=== PATIENT | male | born 1970 | race Caucasian/White ===

== ENCOUNTER → 2022-03-29 10:10 | Outpatient (BNVA) | payer BC, MEDICAID, SELFPAY | PROVIDERS: PCP Family Medicine; Referring Provider Family Medicine; Visit Provider Specialist | DX: G56.03 Carpal tunnel syndrome, bilateral upper limbs (principal); G56.23 Lesion of ulnar nerve, bilateral upper limbs | CPT/HCPCS: 95910; 95913 ==

== ENCOUNTER → 2022-05-14 08:15 | Outpatient (BNVA) | payer BC, MEDICAID, SELFPAY | PROVIDERS: PCP Family Medicine; Visit Provider Specialist | DX: G56.03 Carpal tunnel syndrome, bilateral upper limbs (principal); G56.23 Lesion of ulnar nerve, bilateral upper limbs; E66.01 Morbid (severe) obesity due to excess calories; Z68.42 Body mass index [BMI] 45.0-49.9, adult | CPT/HCPCS: 73110 ==

== ENCOUNTER 2022-05-14 11:46 | Outpatient (CLI) | payer BC, MEDICAID, SELFPAY | END 2022-05-14 11:47 | disposition home or self-care (01) | LOC: SPT 11:47 | PROVIDERS: PCP Family Medicine; Visit Provider Specialist | DX: Z46.89 Encounter for fitting and adjustment of other specified devices (principal); G56.03 Carpal tunnel syndrome, bilateral upper limbs | CPT/HCPCS: 97760; L3908 ==

== ENCOUNTER 2022-07-06 07:39 | Day surgery (SDC) | payer BC, MEDICAID, SELFPAY ==
[2022-07-05 11:50] VITALS: BMI 45.9
[2022-07-06 08:09] VITALS: BP 129/82; PULSE 88; RESP 18; TEMP 36.6; O2SAT 96
[2022-07-06 08:26] LABS: Glucose Point of Care 118 mg/dL (70-110)
[2022-07-06] MEDS: acetaminophen 1,000 MG/100 ML PIGGYBACK 400 MG IV (08:33)
--- NOTE | 2022-07-06 08:33 | ANES.PREANE2 ---
Pre-Anesthetic Assessment Height/Weight: Height 1.78 m Weight 145.15 kg Temp Pulse Resp BP Pulse Ox O2 Del Method 97.9 F 88 18 129/82 96 07/06/22 08:09 07/06/22 08:09 07/06/22 08:09 07/06/22 08:09 07/06/22 08:09 07/06/22 08:15 Preop Diagnosis: Left carpal tunnel syndrome Operation Date: 07/06/22 09:10 Proposed Procedures p LEFT CARPAL TUNNEL RELEASE 96305,G56.00(Left) - Janeen Oconnell MD Familial anesthetic complications: None Was Beta Neel taken within 24 hours: N/A Was Clonidine taken within 24 hours: N/A Last intake: Intake Last Liquid Date 07/05/22 Last Liquid Time 22:00 Last Solid Date 07/05/22 Last Solid Time 21:00 Social No alcohol and No tobacco Exam alert, oriented x 3, clear to auscultation bilaterally and regular rate & rhythm Airway Mallampati: Class III Dentition: chipped (missing, poor dentition) Pulmonary Sleep Apnea CV/HEM Hypertension Metabolic Diabetes Mellitus and Morbid Obesity Anesthetic Plan ASA status: 3 Anesthesia: Regional (specify below) Risk of > 500 ml blood loss (7ml/kg in children): No Medications/Allergies Home Medications Medication Instructions Recorded Confirmed Last Taken Type bupropion HCl 300 mg 24 hr tablet, 300 mg PO QAM 03/29/22 07/05/22 07/05/22 History extended release (Wellbutrin XL) lisinopril 20 1 tab PO BID 03/29/22 07/05/22 07/05/22 History mg-hydrochlorothiazide 12.5 mg tablet metformin 500 mg tablet 500 mg PO DAILY 03/29/22 07/05/22 07/05/22 History trazodone 50 mg tablet 50 mg PO DAILY 03/29/22 07/05/22 07/05/22 History Bilateral Cock Up Splint #1 ea 05/14/22 07/02/22 Unknown Rx celecoxib 200 mg capsule (Celebrex) 200 mg PO DAILY #30 caps 07/02/22 07/05/22 Unknown Rx ibuprofen 800 mg tablet (IBU) 800 mg PO TID 30 days #90 tabs 07/02/22 07/05/22 Unknown Rx Allergies Allergy/AdvReac Type Severity Reaction Status Date / Time No Known Allergies Allergy Verified 07/05/22 11:47 [facility] [place] Anesthesia Social History Smoking and tobacco status: never smoked Alcohol intake: never service: Yes branch: [employer] Current occupation: unemployed History of recent travel: No Data Anesthesia Cardiac Studies: No Data to Display
[2022-07-06] MEDS: CELEcoxib 200 mg Capsule 400 MG PO (08:34)
[2022-07-06] MEDS: sodium chloride 0.9% 1,000 ML 30 ML IV (08:37)
--- NOTE | 2022-07-06 09:15 | P.HPUD_ITS ---
Surgery/Procedure H&P Update DATE OF PROCEDURE: July 06, 2022 DATE H&P PERFORMED: 07/02/22 H&P UPDATE INFORMATION: I have reviewed H&P completed within last 30 days, I have examined patient prior to procedure, No changes to prior documentation and H&P is in [facility] EMR on date indicated PREOP DIAGNOSIS: Left carpal tunnel syndrome PLANNED PROCEDURE: Operation Date: 07/06/22 09:10 Proposed Procedures p LEFT CARPAL TUNNEL RELEASE [id number],G56.00(Left) - Janeen Oconnell MD Related Problem List Diagnoses (1) Carpal tunnel syndrome on right:
[2022-07-06] MEDS: ceFAZolin 2,000 MG in sodium chloride 0.9% (plus) 50 ML 100 MG IV (09:44)
--- NOTE | 2022-07-06 10:39 | P.OP_ITS ---
Operative Report Date of procedure: July 06, 2022 Pre-op diagnosis: Left carpal tunnel syndrome Post-op diagnosis: Left carpal tunnel syndrome Post-op findings: Severe compression across the carpal canal with very thickened transverse carpal ligament.? The nerve was an hourglass shape with purplish discoloration. Procedure done: Left carpal tunnel release Pathology: none sent Surgeon: Janeen Oconnell Senior Cost Accountant: None Anesthesia: MAC (Teodoro block, ASA 3) Estimated blood loss (mL): 5 Tourniquet time (min): 35 (At 250 mmHg) IV fluids (mL): 800 Urine output (mL): 0 (No Dominguez) Complications: None Condition: stable Disposition: PACU (Then return to same-day surgery for discharge home) Brief History: This is a 51 year old male patient here today for left carpal tunnel release. Patient states he has been experiencing symptoms for about 4 years, and he notes his symptoms are gradually worsening. He reports pain, numbness, tingling, and burning sensations in his bilateral hands, primarily involving the thumb index and long fingers.? He states his left hand is worse. He reports shooting pain that travels from his hands to his elbows.? He describes the pain as a constant pain and notes that it is significantly worsened when holding objects or driving.? This pain causes him difficulties in his activities of daily living. He states he has tried splinting and at home exercises with no relief. 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 The patient had nerve conduction studies consistent with moderate median nerve entrapment at the wrist. The patient reports he is diabetic. He states his last A1C was 6. While in the office questions were answered and consents were signed. Procedure: The patient was brought to the operating theater. The patient had a Teodoro block with MAC, ASA 3. The tourniquet was elevated to 250 mmHg for a total tourniquet time of 35 minutes. The patient was also given Ancef 2 g preoperatively. The arm was then prepped and draped with DuraPrep in usual fashion with the arm draped free. A surgical pause was performed. At the time, the surgical pause, we confirmed the site and side of surgery. We also confirmed the patient's identity, appropriate and timely administration of preoperative antibiotics and preoperative surgical markings. An incision was then made along the thenar crease. The incision crossed the wrist joint in a curvilinear fashion. Dissection continued through skin and soft tissues using a scalpel. The palmaris longus was identified along with the transverse carpal ligament. Each of these was released carefully to avoid injury to the median nerve.? His skin was quite thick, and subcutaneous tissues were as well.? The transverse carpal ligament was significantly thickened.? We were able to dissect gently into the carpal canal which was noted to be quite tight with significant compression across the median nerve. The nerve was visualized and was an hourglass shape with purplish discoloration. The canal was subsequently palpated to assure there was no bony encroachment upon the canal. There was a quite thickened fibrous tissue within the canal, and this was opened longitudinally as well. The canal was then palpated distally and proximally to assure that my small finger was passed easily without impingement. Finding this to be so, attention was directed to closure. The wound was irrigated with ropivacaine plain. It was then closed with 2-0 nylon in an interrupted mattress fashion. Sterile dressing was then placed consisting of Dermabond, OpSite, fluffed fluffs, sterile soft roll, and an Omkar wrap. The tourniquet was released after 35 minutes. There were no complications. There were no specimens. The procedure was well tolerated. Plan is the patient will be discharged home. Related Problem List Diagnoses (1) Carpal tunnel syndrome, left:
[2022-07-06 10:43] VITALS: BP 166/75; PULSE 83; RESP 12; TEMP 36.6; O2SAT 97
--- NOTE | 2022-07-06 10:58 | PC.NURSE ---
pt arrived in pacu at 1043 staff notified ahead of time that pt wakes up fighting sometimes pt wakes up a little combative but was soon back to himself due to pt movement only 2 sets of vital signs in phase 1 were obtained pt returned to outpatients at 1102
[2022-07-06 11:01] VITALS: BP 96/79; PULSE 77; RESP 16; TEMP 36.2; O2SAT 96
--- NOTE | 2022-07-06 11:01 | P.PCN_ITS ---
PACU note Narrative: VSS, Good respiratory effort, report to MANAGER BANK Exam: awake
--- NOTE | 2022-07-06 11:01 | PM.PACU ---
PACU note Narrative: VSS, Good respiratory effort, report to SONAR TECHNICIAN Exam: awake
[2022-07-06 11:10] VITALS: BP 116/70; PULSE 76; RESP 18; TEMP 36.2; O2SAT 97
[2022-07-06 11:35] VITALS: BP 122/72; PULSE 78; RESP 18; TEMP 36.2; O2SAT 97
--- NOTE | 2022-07-06 14:01 | ANE.PACU2 ---
Inpatient post-anesthesia follow up: Airway intact: Yes Vital signs: Temperature 97.2 F Pulse Rate 78 Respiratory Rate 18 Blood Pressure 122/72 Pulse Oximetry 97 Oxygen Delivery Me thod Room Air Oxygen Flow Rate 6 Fraction of Inspir ed Oxygen Hydration adequate: Yes Nausea and vomiting: No Pain level: 1 Mental status: Baseline
== END 2022-07-06 11:45 | disposition home or self-care (01) ==
PROVIDERS: PCP Family Medicine; Visit Provider Specialist
PROC: (CPT 64721; principal; 2022-07-06 09:00)
DX: G56.02 Carpal tunnel syndrome, left upper limb (principal); G47.33 Obstructive sleep apnea (adult) (pediatric); I10 Essential (primary) hypertension; E11.9 Type 2 diabetes mellitus without complications; E66.01 Morbid (severe) obesity due to excess calories; Z68.42 Body mass index [BMI] 45.0-49.9, adult
CPT/HCPCS: 64721; 36416; 82962; J0131; J0690; J2250; J2704; J3010; J3490; J7030